=== PATIENT | female | born 1950 | race Caucasian/White ===

== ENCOUNTER 2022-06-27 07:38 | Emergency (ER) | payer OTHER, SELFPAY ==
[2022-06-27 07:40] VITALS: BP 148/67; PULSE 78; RESP 18; TEMP 36.9; O2SAT 98; BMI 33.5
[2022-06-27 08:00] VITALS: BP 123/64; PULSE 70; RESP 18; O2SAT 98
--- NOTE | 2022-06-27 08:05 | ED.NECK ---
HPI - Neck Pain/Injury General Chief Complaint: Neck Pain/Injury Stated Complaint: pain from neck to back of head Time Seen by Provider: 06/27/22 07:56 Mode of arrival: Ambulatory History of Present Illness HPI Narrative: Patient is a 71-year-old female history of depression who presents today with 4 days of right-sided jaw and neck pain. She says she has sharp shooting pains multiple times throughout the day going up into her ear. She is it is quite painful but last only seconds. She denies any fever or chills. She has no numbness tingling or weakness in home. She says when she moves her jaw back and forth it actually feels a little bit better. She has never had this happen before. She can easily move her neck without any pain. Related Data Previous Rx's Medication Instructions Recorded gabapentin 300 mg capsule 300 mg PO BEDTIME #30 caps 06/27/22 Review of Systems Review of Systems Narrative: GENERAL: Denies chills, fatigue, malaise, fever, sweats, travel HEENT: Denies sinus pain, ear pain, sore throat, difficulty swallowing, neck pain RESPIRATORY: Denies dyspnea, cough, wheezing, hemoptysis, sputum. CARDIOVASCULAR: Denies chest pain, palpitations, orthopnea, edema GASTROINTESTINAL: Denies nausea, vomiting, abdominal pain, diarrhea, constipation, melena. : Denies dysuria, frequency, incontinence, hematuria, urinary retention, flank pain. MUSCULOSKELETAL: See HPI SKIN: No rash, no erythema, no pruritus NEUROLOGIC: Denies weakness, dizziness, headache, numbness, change in speech, confusion PSYCHIATRIC: No concerning psychosocial issues. 12 point review of systems is negative except for those stated above and HPI Patient History Social History Smoking Status: Never smoker Smoking Status: Never smoker alcohol intake frequency: a few times a week Substance Use Type: does not use Exam Initial Vital Signs Initial Vital Signs: Vital Signs Temperature 98.4 F 06/27/22 07:40 Pulse Rate 78 06/27/22 07:40 Respiratory Rate 18 06/27/22 07:40 Blood Pressure 148/67 H 06/27/22 07:40 Pulse Oximetry 98 06/27/22 07:40 Oxygen Delivery Method 06/27/22 07:40 GENERAL: Alert pleasant 71-year-old female HEENT: Head atraumatic,EOMI, pupils reactive, face symmetric, moist mucous membranes EARS: Tympanic membranes visualized, no erythema or bulging, no hemotympanum NECK: Supple no vertebral tenderness no step-offs no actual tenderness in the TMJ joint CARDIOVASCULAR: Regular rate and rhythm without murmurs, rubs or gallops. RESPIRATORY: Breath sounds equal bilaterally, no wheezes rales or rhonchi. EXTREMITIES: Normal range of motion, no clubbing or edema. Neurovascularly intact NEUROLOGICAL: Alert and oriented x4. SKIN: Warm, dry, no laceration, no petechiae, no rashes or lesions. Course Orders Ordered: Discontinued Medications Ketorolac Tromethamine (Ketorolac 30 Mg/Ml Vial) 30 mg IM NOW ONE Stop: 06/27/22 08:06 Last Admin: 06/27/22 08:13 Dose: 30 mg Documented By: ELI Vital Signs Vital signs: Vital Signs - 8 hr 06/27/22 07:40 06/27/22 08:00 Temperature 98.4 F Pulse Rate 78 70 Respiratory Rate 18 18 Blood Pressure 148/67 H 123/64 Pulse Oximetry 98 98 Oxygen Delivery Method Room Air MDM - Neck Pain/Injury MDM Narrative Medical decision making narrative: Patient describes sharp shooting pain multiple times throughout the day lasting only seconds consistent with radiculopathy like pain. She only took 1 Tylenol 3 last night and has not taken any Tylenol or ibuprofen frail today. Possible early shingles possible TMJ. At this time she is afebrile she really has no neck pain no need for any further workup. She has no cervical lymph nodes. He is given Toradol here in the ED and a prescription for gabapentin. Discharge Plan Departure Patient Disposition: Home Clinical Impression: Cervical radiculopathy Instructions: DI for Cervical Radiculopathy Activity Restrictions/Additional Instructions: *You have been diagnosed with radiculopathy *What to do: At this time it is unclear exactly what is causing her pain however it does sound like. Recommend taking the medication throughout the day maybe some light stretches. If this continues he may need imaging such as CT or an MRI however indicated today Look for a rash may be early shingles *Continue to take medications as directed Ibuprofen 600mg every 6 hours if needed for [id number] pain Tylenol 650 mg every 4-6 hours as needed for [id number] pain Gabapentin 300 mg at night for nerve pain this can cause drowsiness, *Follow up with your primary care provider in 2-3 days or call [phone] *Return to ER if you should have rash, increasing pain, weakness or any new, worsening or concerning symptoms Prescriptions: New gabapentin 300 mg capsule 300 mg PO BEDTIME Qty: 30 0RF Visit Report Forms: Patient Portal/API
[2022-06-27] MEDS: KETOROLAC 30 MG/ML VIAL IM (08:13)
== END 2022-06-27 08:24 | disposition home or self-care (01) ==
PROVIDERS: Emergency Provider Emergency Medicine
DX: M54.12 Radiculopathy, cervical region (principal)
CPT/HCPCS: 96372; 99283; J1885